=== PATIENT | female | born 1950 | race Caucasian/White ===

== ENCOUNTER 2016-07-13 12:04 | Outpatient (CLI) ==
[2015-08-19 10:53] VITALS: BMI 23.5
== END 2016-07-13 12:05 | disposition home or self-care (01) ==
LOC: LAB 12:04
PROVIDERS: ATTEND Internal Medicine Endocrinology, Diabetes & Metabolism
DX: E04.2 Nontoxic multinodular goiter (principal)
CPT/HCPCS: 36415; 84439; 84443; 84481

== ENCOUNTER 2016-10-27 08:54 | Outpatient (CLI) ==
[2015-08-19 10:53] VITALS: BMI 23.5
[2016-10-30 10:37] LABS: URINE CALCIUM 15.4 mg/dL (Not Estab.)
[2016-10-31 08:53] LABS: URINE CALCIUM 24 HR 254.1 mg/24 hr (100.0-300.0)
== END 2016-10-27 08:55 | disposition home or self-care (01) ==
LOC: LAB 08:54
PROVIDERS: ATTEND Internal Medicine Endocrinology, Diabetes & Metabolism
DX: E21.3 Hyperparathyroidism, unspecified (principal); E83.52 Hypercalcemia
CPT/HCPCS: 36415; 81050; 82340

== ENCOUNTER 2016-12-01 13:21 | Outpatient (CLI) ==
[2015-08-19 10:53] VITALS: BMI 23.5
== END 2016-12-01 13:22 | disposition home or self-care (01) ==
LOC: LAB 13:21
PROVIDERS: ATTEND Internal Medicine
DX: R88.8 Abnormal findings in other body fluids and substances (principal)
CPT/HCPCS: 36415; 84132

== ENCOUNTER 2017-06-06 10:48 | Outpatient (CLI) ==
[2015-08-19 10:53] VITALS: BMI 23.5
[2017-06-06 11:14] LABS: BASOPHILS # (AUTO) 0.1 K/uL (0-0.2); EOSINOPHILS # (AUTO) 0.1 K/ul (0.0-0.7); EOSINOPHILS % (AUTO) 1.4 % (0.0-7.0); HEMATOCRIT 39.8 % (37.0-47.0); HEMOGLOBIN 13.9 g/dl (12.0-16.0); IMMATURE GRANULOCYTE % (AUTO) 0.4 % (0.0-5.0); LYMPHOCYTES # (AUTO) 2.1 K/uL (0.60-3.4); LYMPHOCYTES % (AUTO) 21.5 (10.0-50.0); MEAN CORPUSCULAR HEMOGLOBIN 30.7 pg (27.0-31.0); MEAN CORPUSCULAR HGB CONC 34.9 (31.8-35.4); MEAN CORPUSCULAR VOLUME 87.9 fl (81.0-99.0); MONOCYTES # (AUTO) 0.6 K/uL (0.4-2.0); MONOCYTES % (AUTO) 5.6 (0-10); NEUTROPHILS # (AUTO) 6.9 K/ul (2.0-6.9); NEUTROPHILS % (AUTO) 70.1; PLATELET COUNT 227 10^3/uL (140-440); RED BLOOD COUNT 4.53 10^6/ul (4.20-5.40); WHITE BLOOD COUNT 9.89 K/ul (4.6-10.2)
[2017-06-06 11:55] LABS: ALBUMIN 3.9 g/dL (3.4-5.0); ALBUMIN/GLOBULIN RATIO 1.05; ANION GAP 15.3; BILIRUBIN,TOTAL 0.47 mg/dL (0.00-1.20); BUN/CREATININE RATIO 14.14; CALCIUM 9.6 mg/dL (8.2-10.2); CHOL/HDL RATIO 4.5 (4.5-5.5); CREATININE 0.99 mg/dL (0.60-1.30); PHOSPHORUS 2.6 mg/dL (2.8-4.1); POTASSIUM 5.3 mmol/L (3.5-5.10); TOTAL PROTEIN 7.6 g/dL (5.8-8.1)
== END 2017-06-06 10:49 | disposition home or self-care (01) ==
LOC: LAB 10:48
PROVIDERS: ATTEND Internal Medicine Endocrinology, Diabetes & Metabolism
DX: E83.52 Hypercalcemia (principal); E55.9 Vitamin D deficiency, unspecified; E04.2 Nontoxic multinodular goiter; R73.9 Hyperglycemia, unspecified; Z79.899 Other long term (current) drug therapy
CPT/HCPCS: 36415; 80053; 80061; 82306; 83036; 83970; 84100; 84439; 84443; 85025

== ENCOUNTER 2017-09-05 11:38 | Outpatient (CLI) | payer OTHER ==
[2015-08-19 10:53] VITALS: BMI 23.5
--- NOTE | 2017-09-05 12:44 | DI ---
EXAM: Two views of the right knee HISTORY: Bilateral knee pain. COMPARISON: The left knee x-rays same day FINDINGS: The there is medial and lateral compartmental narrowing with osteophyte formation. There a re calcifications of the meniscus. There is narrowing of the patellofemoral compartment. The soft t issues are unremarkable. There is no visualized effusion. IMPRESSION: Moderate tricompartmental osteoarthritis and bilateral meniscal chondrocalcinosis.
--- NOTE | 2017-09-05 12:46 | DI ---
EXAM: Two views of the left knee HISTORY: Bilateral knee pain. COMPARISON: Same day, opposite knee FINDINGS: There is moderate narrowing and osteophyte formation in the medial and lateral compartments . There are calcifications of the meniscus. The patellofemoral compartment demonstrates mild osteop hyte formation. There is no effusion. The soft tissues are unremarkable. IMPRESSION: Moderate tricompartmental osteoarthritis and meniscal chondrocalcinosis.
== END 2017-09-05 11:39 | disposition home or self-care (01) ==
LOC: RAD 11:38
PROVIDERS: ATTEND Internal Medicine
DX: M25.562 Pain in left knee (principal); M25.561 Pain in right knee

== ENCOUNTER 2018-03-18 06:38 | Outpatient (CLI) ==
[2015-08-19 10:53] VITALS: BMI 23.5
--- NOTE | 2018-03-18 15:01 | ECHO2D ---
Date of Exam: 03/18/18 Ordering Physician: DR. VAHE MARQUEZ Room #: OP Reason for Echo: SURGICAL CLEARANCE, CAD WITH STENT M-Mode Normal Adult Results LV Dimensions Normal Adult Results AoV Opening excursions >1.6 >1.6 LVEDD-base- 3.5-5.8 5.0 Ao root dimensions 2.0-3.7 3.2 LVESD-base- 3.1-4.6 L. Atrium dimensions 1.9-3.8 4.2 Post. Wall thickness 0.8-1.1 1.2 IV septum (thickness) 0.7-1.2 1.1 Post. Wall excursion 0.72-1.3 NORMAL Septal motion NORMAL Systolic motion R. Ventricular cavity 1.5-2.0 NORMAL LVEF 60% 56% Paradoxical septal wall motion NORMAL 2-D : 2-D M Mode Echocardiogram was performed using apical four chamber and left parasternal long and short axis views. Mitral, tricuspid and aortic valves appear to be normal. Contractility of the left ventricle seems to be normal, so is the cavity size. Enlarged Left atrial cavity size. Aortic roots appear to be normal. There is no pericardial effusion. There is no thrombus noted in the left ventricular or left aortic cavity. No mitral valve prolapse noted. M-MODE: MV: MAYBE MITRAL VALVE PROLAPSE AV: NORMAL TV: NORMAL PV: CHAMBER SIZE: ENLARGED LEFT ATRIAL CAVITY WALL MOTION: NORMAL PERICARDIUM: NORMAL INTERPRETATION: 1. BORDERLINE LEFT VENTRICULAR HYPERTROPHY WITH ENLARGED LEFT ATRIAL CAVITY ( 4.2CM) 2. NORMAL LEFT VENTRICULAR CONTRACTILITY 3. NORMAL VALVES MTDD
== END 2018-03-18 06:39 | disposition home or self-care (01) ==
LOC: CAR 06:38
PROVIDERS: ATTEND Internal Medicine
DX: Z01.810 Encounter for preprocedural cardiovascular examination (principal); I25.10 Atherosclerotic heart disease of native coronary artery without angina pectoris; Z95.5 Presence of coronary angioplasty implant and graft
CPT/HCPCS: 93005; 93010

== ENCOUNTER 2018-03-19 06:39 | Outpatient (CLI) ==
[2015-08-19 10:53] VITALS: BMI 23.5
--- NOTE | 2018-03-19 10:57 | STRESSECHO ---
Date of Test: 03/19/18 Ordering Physician: DR. VAHE MARQUEZ Occupation: RETIRED Reason for Exam: CHEST PAIN, CAD WITH STENT, SURGICAL CLEARANCE Smoking History : 45 PK YRS Height: 64" Weight: 135 LBS Current Medications: ASA, VITAMIN D, SIMVASTATIN, LISINOPRIL, BISOPROLOL, CLONAZEPAM Resting EKG: SINUS RHYTHM/ NO ACUTE CHANGES Target Heart Rate: 131/155 S-T SEGMENT STAGE MPH/GRADE HEART RATE BPM BLOOD PRESSURE MMHG RHYTHM +/- ELEVATION DEPRESSION SYMPTOMS,COMMENTS AT REST 68 130/68 SR X NONE 1 1.7/10% 120 162/80 SR X NONE 2 2.5/12% 3 3.4/14% 4 4.2/16% 5 5.0/18% Immediately After 130 SR X FATIGUE Minutes Post Exercise 4:00 78 138/62 SR X NO COMMENTS Minutes Post Exercise DURATION OF EXERCISE: 3:45 MAXIMUM HEART RATE REACHED: 136 BPM REASON FOR TERMINATION: FATIGUE 98% OXYGEN SATURATION WITH EXERCISE ON ROOM AIR METS 6.5 INTERPRETATION: 1. TEST NEGATIVE FOR ISCHEMIC ST-T WAVE CHANGES 2. NO CHEST PAIN OR DISCOMFORT 3. BLOOD PRESSURE RESPONSE: ADEQUATE 4. NO ARRHYTHMIA'S LEFT VENTRICULAR CONTRACTILITY--RESTING AND POST EXERCISE MTDD
--- NOTE | 2018-03-21 11:40 | ECHOSTRESS ---
Date of Exam: 03/19/18 Ordering Physician: DR. VAHE MARQUEZ Reason for Echo: CHEST PAIN, CAD WITH STENT, SURGICAL CLEARANCE, STRESS TEST-- NO ISCHEMIAA M-Mode Normal Adult Results LV Dimensions Normal Adult Results AoV Opening excursions >1.6 LVEDD-base- 3.5-5.8 Ao root dimensions 2.0-3.7 LVESD-base- 3.1-4.6 L. Atrium dimensions 1.9-3.8 Post. Wall thickness 0.8-1.1 IV septum (thickness) 0.7-1.2 Post. Wall excursion 0.72-1.3 Septal motion Systolic motion R. Ventricular cavity 1.5-2.0 LVEF 60% Paradoxical septal wall motion 2-D: NORMAL LEFT VENTRICULAR CONTRACTILITY--RESTING AND POST EXERCISE M-MODE: MV: AV: TV: PV: CHAMBER SIZE: WALL MOTION: NORMAL LEFT VENTRICULAR CONTRACTILITY--RESTING AND POST EXERCISE PERICARDIUM: INTERPRETATION: 1. NORMAL LEFT VENTRICULAR CONTRACTILITY--RESTING AND POST EXERCISE MTDD
== END 2018-03-19 06:40 | disposition home or self-care (01) ==
LOC: CAR 06:39
PROVIDERS: ATTEND Internal Medicine
DX: I25.10 Atherosclerotic heart disease of native coronary artery without angina pectoris (principal); Z95.5 Presence of coronary angioplasty implant and graft; Z01.810 Encounter for preprocedural cardiovascular examination